=== PATIENT | male | born 2000 | race Hispanic/Latino ===

== ENCOUNTER 2018-05-22 23:25 | Emergency (ER) | payer SELFPAY ==
[2018-05-22] MEDS ORDERED: IBUPROFEN 800 MG TAB ONE (23:59)
[2018-05-22] MEDS ORDERED: CIPROFLOXACIN HCL 0.2%/HYDROCORT 1% 10 ML OTIC SUSP ONE (23:59)
== END 2018-05-23 00:21 | disposition home or self-care (01) ==
LOC: EDH 23:25
DX: H60.92 Unspecified otitis externa, left ear (principal); Z90.89 Acquired absence of other organs

== ENCOUNTER 2020-05-27 20:41 | Emergency (ER) | payer OTHER ==
[2020-05-27] MEDS ORDERED: IBUPROFEN 600 MG TABLET ONE (21:04)
[2020-05-27] MEDS ORDERED: ACETAMINOPHEN EXTRA STRENGTH 500 MG TABLET ONE (21:04)
[2020-05-27] MEDS ORDERED: ALBUTEROL INHALER 90MCG/INH IH ONE (21:18)
[2020-05-27] MEDS ORDERED: SODIUM CHLORIDE 0.9% 500ML 500 ML IV ONE (21:19)
[2020-05-27] MEDS ORDERED: METHYLPREDNISOLONE SOD SUCC 125MG/2ML VIAL ONE (21:19)
[2020-05-27 21:33] LABS: RAPID GROUP A STREP NEGATIVE (NEGATIVE)
== END 2020-05-27 22:57 | disposition home or self-care (01) ==
LOC: EDH 20:41
DX: U07.1 COVID-19 (principal); J20.9 Acute bronchitis, unspecified
CPT/HCPCS: 71045; 87426; 87804 ×2; 87880; 96361; 96374; 99284; J2930; J7040